=== PATIENT | female | born 1970 | race Asian ===

== ENCOUNTER 2017-08-27 02:46 | Emergency (ER) | payer OTHER ==
[~2017-08-27] VITALS: Ht 165.1 cm; Wt 64.8 kg
[2017-08-27 02:50] VITALS: Ht 165.1 cm; Wt 64.8 kg
[2017-08-27] MEDS ORDERED: ONDANSETRON INJ 2 MG/ML 2 ML VIAL IV STA (03:06)
[2017-08-27] MEDS ORDERED: KETOROLAC TROMETHAMINE 30 MG/ML VIAL ONE (03:10)
[2017-08-27] MEDS ORDERED: KETOROLAC TROMETHAMINE 15 MG/ML VIAL IM ONE (03:15)
[2017-08-27] MEDS ORDERED: SODIUM CHLORIDE 0.9% 1000ML 1,000 ML IV ONE ×2 (03:15→04:30)
[2017-08-27 03:35] LABS: BASO % 0.1 %; BASO ABS # 0.01 K/uL (0-0.2); EOS % 0.7 %; EOS ABS # 0.05 K/uL (0-0.5); HEMATOCRIT 39.2 % (37-47); HEMOGLOBIN 13.7 g/dL (12.0-16.0); IG# 0.01 K/uL (0.00-0.02); LYMPH % 5.4 %; LYMPH ABS # 0.39 K/uL (1.2-3.4); MEAN CORPUSCULAR HEMOGLOBIN 31.8 pg (25-34); MEAN CORPUSCULAR HGB CONC 34.9 g/dl (32-36); MONO % 0.6 %; MONO ABS # 0.04 K/uL (0.11-0.59); NEUT % 93.1 %; NEUT ABS # 6.73 K/uL (1.4-6.5); PLATELET COUNT 209 K/uL (130-400); RED CELL DISTRIBUTION WIDTH SD 40.6 fL (36.4-46.3); WHITE BLOOD COUNT 7.23 K/uL (4.8-10.8)
[2017-08-27 03:56] LABS: PTT PATIENT 21.1 SECONDS (21.0-31.0)
[2017-08-27 04:12] LABS: ALBUMIN 4.2 gm/dl (3.4-5.0); CREATININE 0.87 mg/dl (0.60-1.20); TOTAL PROTEIN 8.4 gm/dl (6.4-8.2)
[2017-08-27] MEDS ORDERED: METR1TAB4 PO (05:37)
[2017-08-27] MEDS ORDERED: AMPICILLIN PO (05:37)
[2017-08-27] MEDS ORDERED: ANTI-VIRAL PO (05:38)
[2017-08-27] MEDS ORDERED: ONDANSETRON HOME PACK 4MG OD TAB PO ONE (06:30)
--- NOTE | 2017-08-27 06:38 | DIAGNOSTIC IMAGING REPORT ---
CT SCAN OF THE ABDOMEN AND PELVIS WITHOUT CONTRAST CLINICAL HISTORY: Low abdominal pain. Nausea. Vomiting. COMPARISON STUDY: No previous studies for comparison. TECHNIQUE: CT scan of the abdomen and pelvis was performed from the lung bases to the proximal femurs. Images are reviewed in the axial, sagittal, and coronal planes. IV contrast was not administered for this examination. A dose lowering technique was utilized adhering to the principles of ALARA. CT DOSE: 321.36 mGy.cm FINDINGS: Lower chest: There are mild dependent atelectatic changes present. There is a 5 x 2 mm left lower lobe point nodule as visualized in image #11/511. In the absence of high risk factors, no further follow-up is necessary. Liver: The unenhanced liver is normal in size, contour, and attenuation. There is no intrahepatic biliary ductal dilatation. There are few small hepatic calcifications. Gallbladder: Unremarkable. Spleen: Normal in size and attenuation. Pancreas: Unremarkable. Adrenal glands: Unremarkable. Kidneys: The unenhanced kidneys are normal in size without hydronephrosis. There is no contour deforming renal mass lesion. No renal calculi are identified. Bowel: There are no transition zones indicate bowel obstruction. There is no evidence of acute diverticulitis. There is mild fecal retention. The appendix appears normal. Peritoneum: There is no intraperitoneal free air or abdominal ascites. Vasculature: The abdominal aorta is normal in course and caliber. Adenopathy: None. Pelvic viscera: The uterus appears surgically absent Skeletal structures: No destructive osseous lesions are seen. IMPRESSION: 1. No acute intracranial findings 2. No evidence of bowel obstruction. No evidence of free air 3. Normal appendix. No evidence of acute diverticulitis. 4. No renal, ureteral, or bladder calculi identified. Electronically signed by: Og Holley M.D. 08/27/2017 6:37 AM Dictated Date/Time: 08/27/2017 6:32 AM
[2017-08-27] MEDS ORDERED: ONDA4TAB10 SL (06:40)
[2017-08-27 06:50] VITALS: BP 90/55; PULSE 114; TEMP 37.4; O2SAT 97
--- NOTE | 2017-08-27 07:19 | DIAGNOSTIC IMAGING REPORT ---
SINGLE VIEW CHEST CLINICAL HISTORY: Nausea and vomiting. FINDINGS: An AP, portable, upright chest radiograph is obtained. No prior studies are available for comparison at the time of dictation. The examination is degraded by portable technique and patient rotation. The cardiomediastinal silhouette is unremarkable. The lungs and pleural spaces are clear. No pneumothorax is seen. The bony thorax is grossly intact. IMPRESSION: No active disease in the chest. Electronically signed by: Benson Wilson M.D. 08/27/2017 7:17 AM Dictated Date/Time: 08/27/2017 7:17 AM
--- NOTE | 2017-08-28 00:52 | EMERGENCY ROOM VISIT NOTE ---
History First contact with patient: 02:55 Chief Complaint: ILLNESS Stated Complaint: WHOLE BODY ACHE,COLD,VOMITING,MAYBE TUMOR History of Present Illness The patient is a 47 year old female who presents to the Emergency Room with complaints of generalized body aches, nausea, vomiting, and fever. The patient is from [place] and her recently traveled back home. The patient was actively vomiting in triage and was seen immediately upon her arrival to an ER room. She does not report chronic medical disease. No known ill exposures. She is without chest pain or chest tightness. She does have some abdominal cramping. She rates her current discomfort a 4/10. Evidently the patient is taking ampicillin, Flagyl, and an unknown Urdu antiviral medication already for an unknown diagnosis. She rates her current discomfort a 4/10. She does not have diarrhea. Review of Systems More than 10 systems were reviewed and otherwise negative with the exception of history of present illness. Past Medical/Surgical History History of hysterectomy Family History No pertinent family history Social History Smoking Status: Never Smoker Housing Status: lives with family Current/Historical Medications Scheduled Metronidazole (Flagyl), 250 MG PO TID Ondasetron Odt (Zofran Odt), 4 MG SL Q6H [Ampicillin .25gm], 1 CAP PO TID [Anti-Viral], 1 TAB PO TID Physical Exam Vital Signs Date Time Temp Pulse Resp B/P (MAP) Pulse Ox O2 Delivery O2 Flow Rate FiO2 08/27/17 06:50 37.4 114 18 90/55 97 08/27/17 06:06 77 18 99/54 93 Room Air 08/27/17 03:59 101 18 104/68 95 Room Air 08/27/17 02:50 37.0 102 20 135/83 99 Room Air Physical Exam VITALS: Vitals are noted on the nurse's note and reviewed by myself. Vital signs stable. GENERAL: female who appears ill on examination. She is cooperative. MOUTH: Mucous membranes moist. Tonsils are not enlarged. Pharynx without erythema, blood, or exudate. Uvula midline. Airway patent. NECK: Supple without nuchal rigidity. No lymphadenopathy. No thyromegaly. Cervical spine is nontender. HEART: Regular rate and rhythm without murmurs gallops or rubs. LUNGS: Clear to auscultation bilaterally without wheezes, rales or rhonchi. No retractions or accessory muscle use. ABDOMEN: Positive normal bowel sounds x 4. Soft, nontender, without masses or organomegaly. No guarding or rebound tenderness. MUSCULOSKELETAL: No muscle atrophy, erythema, or edema noted. Full range of motion without joint tenderness in all extremities. Medical Decision & Procedures ER Provider Diagnostic Interpretation: SINGLE VIEW CHEST CLINICAL HISTORY: Nausea and vomiting. FINDINGS: An AP, portable, upright chest radiograph is obtained. No prior studies are available for comparison at the time of dictation. The examination is degraded by portable technique and patient rotation. The cardiomediastinal silhouette is unremarkable. The lungs and pleural spaces are clear. No pneumothorax is seen. The bony thorax is grossly intact. IMPRESSION: No active disease in the chest. CT SCAN OF THE ABDOMEN AND PELVIS WITHOUT CONTRAST CLINICAL HISTORY: Low abdominal pain. Nausea. Vomiting. COMPARISON STUDY: No previous studies for comparison. TECHNIQUE: CT scan of the abdomen and pelvis was performed from the lung bases to the proximal femurs. Images are reviewed in the axial, sagittal, and coronal planes. IV contrast was not administered for this examination. A dose lowering technique was utilized adhering to the principles of ALARA. CT DOSE: 321.36 mGy.cm FINDINGS: Lower chest: There are mild dependent atelectatic changes present. There is a 5 x 2 mm left lower lobe point nodule as visualized in image #11/511. In the absence of high risk factors, no further follow-up is necessary. Liver: The unenhanced liver is normal in size, contour, and attenuation. There is no intrahepatic biliary ductal dilatation. There are few small hepatic calcifications. Gallbladder: Unremarkable. Spleen: Normal in size and attenuation. Pancreas: Unremarkable. Adrenal glands: Unremarkable. Kidneys: The unenhanced kidneys are normal in size without hydronephrosis. There is no contour deforming renal mass lesion. No renal calculi are identified. Bowel: There are no transition zones indicate bowel obstruction. There is no evidence of acute diverticulitis. There is mild fecal retention. The appendix appears normal. Peritoneum: There is no intraperitoneal free air or abdominal ascites. Vasculature: The abdominal aorta is normal in course and caliber. Adenopathy: None. Pelvic viscera: The uterus appears surgically absent Skeletal structures: No destructive osseous lesions are seen. IMPRESSION: 1. No acute intracranial findings 2. No evidence of bowel obstruction. No evidence of free air 3. Normal appendix. No evidence of acute diverticulitis. 4. No renal, ureteral, or bladder calculi identified. Laboratory Results 08/27/17 03:20 Red Blood Count 4.31, Mean Corpuscular Volume 91.0, Mean Corpuscular Hemoglobin 31.8, Mean Corpuscular Hemoglobin Concent 34.9, Mean Platelet Volume 9.0, Neutrophils (%) (Auto) 93.1, Lymphocytes (%) (Auto) 5.4, Monocytes (%) (Auto) 0.6, Eosinophils (%) (Auto) 0.7, Basophils (%) (Auto) 0.1, Neutrophils # (Auto) 6.73, Lymphocytes # (Auto) 0.39, Monocytes # (Auto) 0.04, Eosinophils # (Auto) 0.05, Basophils # (Auto) 0.01 08/27/17 03:20 Test 08/27/17 03:20 08/27/17 04:38 08/27/17 06:08 White Blood Count 7.23 K/uL (4.8-10.8) Red Blood Count 4.31 M/uL (4.2-5.4) Hemoglobin 13.7 g/dL (12.0-16.0) Hematocrit 39.2 % (37-47) Mean Corpuscular Volume 91.0 fL (80-100) Mean Corpuscular Hemoglobin 31.8 pg (25-34) Mean Corpuscular Hemoglobin Concent 34.9 g/dl (32-36) Platelet Count 209 K/uL (130-400) Mean Platelet Volume 9.0 fL (7.4-10.4) Neutrophils (%) (Auto) 93.1 % Lymphocytes (%) (Auto) 5.4 % Monocytes (%) (Auto) 0.6 % Eosinophils (%) (Auto) 0.7 % Basophils (%) (Auto) 0.1 % Neutrophils # (Auto) 6.73 K/uL (1.4-6.5) Lymphocytes # (Auto) 0.39 K/uL (1.2-3.4) Monocytes # (Auto) 0.04 K/uL (0.11-0.59) Eosinophils # (Auto) 0.05 K/uL (0-0.5) Basophils # (Auto) 0.01 K/uL (0-0.2) RDW Standard Deviation 40.6 fL (36.4-46.3) RDW Coefficient of Variation 12.0 % (11.5-14.5) Immature Granulocyte % (Auto) 0.1 % Immature Granulocyte # (Auto) 0.01 K/uL (0.00-0.02) Prothrombin Time 10.1 SECONDS (9.0-12.0) Prothromb Time International Ratio 1.0 (0.9-1.1) Activated Partial Thromboplast Time 21.1 SECONDS (21.0-31.0) Partial Thromboplastin Ratio 0.8 Anion Gap 9.0 mmol/L (3-11) Est Creatinine Clear Calc Drug Dose 70.4 ml/min Estimated GFR () 90.7 Estimated GFR (Non- 78.2 BUN/Creatinine Ratio 16.1 (10-20) Calcium Level 9.0 mg/dl (8.5-10.1) Total Bilirubin 0.5 mg/dl (0.2-1) Aspartate Amino Transf (AST/SGOT) U/L (15-37) Alanine Aminotransferase (ALT/SGPT) 30 U/L (12-78) Alkaline Phosphatase 72 U/L (45-117) Total Protein 8.4 gm/dl (6.4-8.2) Albumin 4.2 gm/dl (3.4-5.0) Globulin 4.2 gm/dl (2.5-4.0) Albumin/Globulin Ratio 1.0 (0.9-2) Lipase 158 U/L (73-393) Thyroid Stimulating Hormone (TSH) 1.440 uIu/ml (0.300-4.500) Urine Color YELLOW Urine Appearance CLEAR (CLEAR) Urine pH 8.0 (4.5-7.5) Urine Specific Wilson 1.010 (1.000-1.030) Urine Protein NEG (NEG) Urine Glucose (UA) NEG (NEG) Urine Ketones NEG (NEG) Urine Occult Blood NEG (NEG) Urine Nitrite NEG (NEG) Urine Bilirubin NEG (NEG) Urine Urobilinogen NEG (NEG) Urine Leukocyte Esterase MODERATE (NEG) Urine WBC (Auto) 5-10 /hpf (0-5) Urine RBC (Auto) 0-4 /hpf (0-4) Urine Hyaline Casts (Auto) 0 /lpf (0-5) Urine Epithelial Cells (Auto) 10-20 /lpf (0-5) Urine Bacteria (Auto) NEG (NEG) Urine Test NEG (NEG) Bedside Lactic Acid Venous 1.03 mmol/L (0.90-1.70) Medications Administered Medications (Trade) Dose Ordered Sig/León Route Start Time Stop Time Status Last Admin Dose Admin Sodium Chloride 1,000 ml @ 999 mls/hr Q1H1M ONCE IV 08/27/17 03:15 08/27/17 04:15 DC 08/27/17 03:33 999 MLS/HR Ondansetron HCl (Zofran Inj) 4 mg NOW STAT IV 08/27/17 03:06 08/27/17 03:09 DC 08/27/17 03:33 4 MG Ketorolac Tromethamine (Toradol Inj) 30 mg STK-MED ONCE .ROUTE 08/27/17 03:10 08/27/17 03:11 DC 08/27/17 03:35 30 MG Sodium Chloride 1,000 ml @ 999 mls/hr Q1H1M ONCE IV 08/27/17 04:30 08/27/17 05:30 DC 08/27/17 04:35 999 MLS/HR Ondansetron HCl (ZOFRAN ODT 4MG Home Pack) 1 homepack UD ONCE PO 08/27/17 06:30 08/27/17 06:31 DC 08/27/17 06:48 1 HOMEPACK ED Course Physical exam and history were performed. Nursing notes, EMR, and Medication List were personally reviewed. Patient appears to have illness, nausea, and vomiting. She was actively vomiting just prior to my arrival into the room, the patient does appear ill on exam. She does not have distinct reducible abdominal tenderness. IV access was established and labs are obtained and the patient was hydrated and medicated as above. X-ray and CT scan were performed. The case was discussed with my attending physician, Dr Encinas, who remained involved in patient care and decision making. The patient's blood work is as above and was reviewed. She does not have a significantly elevated white blood cell count or gross anemia, bandemia, or significant electrolyte imbalance. Lipase and transaminases are nondiagnostic. Her lactic acid is elevated, and she was given additional bolus of saline. Chest x-ray was reviewed by myself and radiology showing no acute process. Abdominal and pelvic CT is also without acute process. The patient was monitored for several hours here in the emergency department. Repeat abdominal examinations continued to show no distinct tenderness. The patient felt markedly improved after fluids and Zofran. We did repeat lactic acid, which normalized after fluids. I discussed options of care with the patient, and she would like to go home. This appears reasonable as her symptoms are felt to be viral or possibly foodborne in etiology. She is evidently already on antibiotics and antiviral medication from [place]. She may continue these as previously directed. The patient will need to follow with her primary care physician for further management. She was otherwise invited back to the ER with any new, worsening, or concerning symptoms. The chart was completed utilizing [employer] Speech Voice Recognition Software. Grammatical errors, random word insertions, pronoun errors, and incomplete sentences are an occasional consequence of this system due to software limitations, ambient noise, and hardware issues. Any formal questions or concerns about the content, text, or information contained within the body of this dictation should be directly addressed to the provider for clarification. . Medical Decision Differential diagnosis: Etiologies such as gastroenteritis, food borne illness, infections, appendicitis , diverticulitis, inflammatory bowel disease, obstruction, GI bleed, biliary pathology, as well as others were entertained. Impression Primary Impression: Nausea and vomiting Additional Impression: General ill feeling Departure Information Dispostion Home / Self-Care Condition GOOD Prescriptions Ondasetron Odt (ZOFRAN ODT) 4 Mg Tab 4 MG SL Q6H for Nausea, #12 TAB Prov: Jostin Ordonez PA-C 08/27/17 Referrals Boby Wang M.D. Forms HOME CARE DOCUMENTATION FORM, IMPORTANT VISIT INFORMATION Patient Instructions My [facility] Additional Instructions You were seen and evaluated today on an emergency basis only. This is not a substitute for, or an effort to provide, complete comprehensive medical care. It is not possible to recognize and treat all injuries or illnesses in a single emergency department visit. We recommend you follow-up with primary care physician this week for recheck of her symptoms. We have provided information for Dr Wang as a convenience. Please call the office in the morning to help establish care. Drink plenty of fluids and remain well hydrated. Slow sips over long periods will help. Zofran 4 mg ODT: Dissolve 1 tablet every 6 hrs as needed for nausea. You are welcome to return to the emergency department anytime with new, worsening, or concerning symptoms. Problem Qualifiers
== END 2017-08-27 06:50 | disposition home or self-care (01) ==
LOC: C.EDB 02:49
DX: R11.2 Nausea with vomiting, unspecified (principal); R69 Illness, unspecified; Z90.710 Acquired absence of both cervix and uterus